=== PATIENT | female | born 1950 | race Asian ===

== ENCOUNTER 2016-10-20 05:35 | Day surgery (SDC) | payer MEDICARE, OTHER ==
[2016-10-19 10:44] VITALS: BMI 20.7
[~2016-10-20] VITALS: Ht 160 cm; Wt 46.1 kg
[2016-10-20] VITALS (10 sets, daily range): BP systolic 96–126; BP diastolic 53–59; PULSE 58–62; RESP 16–18; Ht 160 cm; Wt 46.1 kg
[~2016-10-20 05:35] MED LIST: PHENYLephrine 10% 5 ML OPH OPER SCH
[2016-10-20] MEDS ORDERED: CYCLOPENTOLATE 2% 2 ML OPH OPER SCH (06:00)
[2016-10-20] MEDS ORDERED: BUPIVACAINE 0.75% (MPF) 10 ML INJ ONE (06:26)
[2016-10-20] MEDS ORDERED: LIDOCAINE 1% (MPF) 10 ML INJ ONE (06:26)
[2016-10-20] MEDS ORDERED: LIDOCAINE 2% (SDV) 5 ML INJ ONE ×2 (06:27→08:28)
[2016-10-20] MEDS ORDERED: EPINEPHrine 1 MG INJ ONE (06:27)
[2016-10-20] MEDS ORDERED: TIMOLOL 0.5% 5 ML OPH ONE (06:27)
[2016-10-20] MEDS ORDERED: SODIUM BICARBONATE (IV ADD) 50 ML ONE (06:30)
[2016-10-20] MEDS ORDERED: CARBACHOL 0.01% 1.5 ML OPH INJ ONE ×2 (06:54→08:09)
[2016-10-20] MEDS ORDERED: LIDOCAINE 1% (MPF) 10 ML INJ INJ ONE (07:15)
[2016-10-20] MEDS ORDERED: MOXIFLOXACIN 0.5% 3 ML OPH OPER SCH (07:30)
[2016-10-20] MEDS ORDERED: PROPOFOL 20 ML ONE (07:32)
[2016-10-20] MEDS ORDERED: LABETALOL HCL 20MG INJ IV PRN (08:00)
[2016-10-20] MEDS ORDERED: FENTAnyl 50 MCG/ML VIAL IV PRN ×3 (08:00)
[2016-10-20] MEDS ORDERED: ONDANSETRON 4 MG INJ IV PRN (08:00)
[2016-10-20] MEDS ORDERED: CARBACHOL 0.01% 1.5 ML OPH INJ IO ONE (08:10)
--- NOTE | 2016-10-20 18:15 | OPR ---
DATE OF OPERATION: 10/20/2016 SURGEON: Annabelle Buenrostro MD COMPOUNDING TECHNICIAN: None. PREOPERATIVE DIAGNOSIS: Senile nuclear sclerotic cataract, left eye. POSTOPERATIVE DIAGNOSIS: Senile nuclear sclerotic cataract, left eye. OPERATION: Kelman phacoemulsification with implantation of intraocular lens, left eye. DESCRIPTION OF PROCEDURE: Following standard preparation and draping of the patient, an aspirating lid speculum was placed for immobilization of the lids. A Superblade incision was made for access in to the anterior chamber. Approximately 0.5 ml of 1% unpreserved Xylocaine was instilled into the ant erior chamber, and after approximately 15 seconds, this was replaced with Viscoat. A clear corneal incision was then made using the 3.2 mm keratome, following which an anterior circul ar capsulorrhexis was made. The major portion of the lens cortex and nucleus was then dislocated fro m the capsular bag using hydrodissection. The KPE tip was introduced into the eye, and controlling m ovements of the lens with a two-handed technique, the major portion of the lens cortex and nucleus w as removed, maintaining the lens in the plane of the iris. The remaining cortical material was remov ed via the irrigating-aspirating instrument. The capsular bag and the anterior chamber were re-forme d using Viscoat. The proper power lens was then placed within the capsular bag. The viscoelastic was then removed from the eye and the eye re-formed with balanced salt solution. One 10-0 Vicryl suture was then used to ensure closure of the corneal incision. The eye was re-forme d to normal pressure using balanced salt solution. The eye and cul-de-sacs were now simply flooded w ith 5% Betadine solution. One drop of Vigamox and one drop of Betagan solution were instilled into the eye. A light pressure d ressing was applied, and the patient was returned to the recovery room in satisfactory condition. Dictated By: ANNABELLE HASSAN/CAITY Conf#: [id number] DID#: [id number]
== END 2016-10-20 10:10 | disposition home or self-care (01) ==
LOC: SDS 05:35
PROVIDERS: ATTEND Ophthalmology
DX: H25.12 Age-related nuclear cataract, left eye (principal)
CPT/HCPCS: 66984; J0171; V2632

== ENCOUNTER → 2017-01-19 | Outpatient (CLI) | payer OTHER ==
[~2017-01-19] MED LIST changes: +OPHTHALMIC IRRIG SOLUTION 120 ML ONE; +PHENYLephrine 10% 5 ML OPH ONE; -PHENYLephrine 10% 5 ML OPH OPER SCH; +PROPARACAINE 0.5% 15 ML OPH ONE; +TROPICAMIDE 1% 3 ML OPH ONE
== END | disposition home or self-care (01) ==
LOC: RAD 11:58
PROVIDERS: ATTEND Ophthalmology
DX: H26.492 Other secondary cataract, left eye (principal)
CPT/HCPCS: 66821

== ENCOUNTER 2017-08-08 06:23 | Day surgery (SDC) | payer OTHER ==
[2017-08-08] VITALS (13 sets, daily range): BP systolic 98–122; BP diastolic 45–62; PULSE 64–72; RESP 15–22; Ht 160 cm; Wt 49.0 kg
[~2017-08-08] VITALS: Ht 160 cm; Wt 49.0 kg
[2017-08-08] MEDS ORDERED: LIDOCAINE 1% (MPF) 10 ML INJ ONE (06:43)
[2017-08-08] MEDS ORDERED: TIMOLOL 0.5% 5 ML OPH ONE (06:43)
[2017-08-08] MEDS ORDERED: BUPIVACAINE 0.75% (MPF) 10 ML INJ ONE (06:43)
[2017-08-08] MEDS ORDERED: CARBACHOL 0.01% 1.5 ML OPH INJ ONE (06:43)
[2017-08-08] MEDS ORDERED: EPINEPHrine 1 MG INJ ONE (06:44)
[2017-08-08] MEDS ORDERED: LIDOCAINE 2% (SDV) 5 ML INJ ONE ×2 (06:44→09:23)
[2017-08-08] MEDS ORDERED: SODIUM BICARBONATE (IV ADD) 50 ML ONE (06:46)
[2017-08-08] MEDS ORDERED: CYCLOPENTOLATE 2% 2 ML OPH OPER SCH (07:00)
[2017-08-08] MEDS ORDERED: EPHEDrine SULFATE 50 MG/5 ML SYG ONE (07:00)
[2017-08-08] MEDS ORDERED: PHENYLephrine 10% 5 ML OPH OPER SCH (07:00)
[2017-08-08] MEDS ORDERED: MOXIFLOXACIN 0.5% 3 ML OPH OPER SCH (07:00)
[2017-08-08] MEDS ORDERED: LACTATED RINGER'S 1,000 ML IV SCH (07:30)
[2017-08-08] MEDS ORDERED: ONDANSETRON 4 MG INJ IV PRN (08:00)
[2017-08-08] MEDS ORDERED: PROPOFOL 20 ML ONE (09:23)
[2017-08-08] MEDS ORDERED: FENTAnyl 50 MCG/ML VIAL ONE (09:23)
[2017-08-08] MEDS ORDERED: ONDANSETRON 4 MG INJ ONE (09:49)
[2017-08-08] MEDS ORDERED: DEXAMETHASONE 4 MG/ML 1 ML INJ ONE (09:49)
[2017-08-08] MEDS ORDERED: LIDOCAINE 1% (MPF) 10 ML INJ INJ ONE (09:50)
[2017-08-08] MEDS ORDERED: TIMOLOL 0.5% 5 ML OPH RIGHT EYE ONE (10:07)
--- NOTE | 2017-08-08 11:28 | OPR ---
DATE OF OPERATION: 08/08/2017 SURGEON: Annabelle Buenrostro MD [employer] CHIEF: None. PREOPERATIVE DIAGNOSIS: Senile nuclear sclerotic cataract right eye. POSTOPERATIVE DIAGNOSIS: Senile nuclear sclerotic cataract, right eye. OPERATION: Kelman phacoemulsification with implantation of intraocular lens right eye. DESCRIPTION OF PROCEDURE: Following standard preparation and draping of the patient, a lid speculum was placed for immobilization of the lids. A SuperBlade incision was made at the corneal limbal ju nction for access into the anterior chamber. Approximately 0.03 mL of nonpreserved 1% Xylocaine was instilled into the anterior chamber, and after approximately 5 to 10 seconds, this was replaced wit h Viscoat. A clear corneal incision was then made using the 3.2 mm keratome, following which an ant erior circular capsulorrhexis was made. The major portion of the lens cortex and nucleus were then dislocated from the capsular bag using hydrodissection. The KPE tip was introduced into the eye and controlling tumbling of the lens with a 2-handed technique, the major portion of the lens cortex an d nucleus was removed, maintaining the lens in the plane of the iris. The remaining cortical materi al was removed via the irrigating aspirating instrument. The capsular bag and the anterior chamber were now reformed using Viscoat. The proper power lens was then placed in the capsular bag. The vi scoelastic was then removed from the eye and the eye reformed with balanced salt solution. One 10-0 Vicryl suture was then used to ensure closure of the corneal incision. The eye was reformed to nor mal pressure using balanced salt solution. The eye and cul-de-sacs were now simply flooded with 5% Betadine solution. One drop of Vigamox and 1 drop of Betagan solution were instilled into the eye. A light pressure dressing was applied, and the patient was returned to the recovery room in satisfa ctory condition. and this will be standard KPE with IOL right eye a lot. Dictated By: ANNABELLE HASSAN/CAITY Conf#: [id number] DID#: [id number]
== END 2017-08-08 12:10 | disposition home or self-care (01) ==
LOC: SDS 06:23
PROVIDERS: ATTEND Ophthalmology
DX: H25.11 Age-related nuclear cataract, right eye (principal); E03.9 Hypothyroidism, unspecified
CPT/HCPCS: 66984; 85025; J0171; J1100; J2405; J3010; V2632